=== PATIENT | female | born 1990 | race Caucasian/White ===

== ENCOUNTER 2016-12-07 14:00 | Emergency (ER) | payer OTHER | END 2016-12-07 16:54 | disposition home or self-care (01) | LOC: ER1 14:00 | DX: G89.29 Other chronic pain (principal); M54.5 Low back pain; I10 Essential (primary) hypertension; G43.909 Migraine, unspecified, not intractable, without status migrainosus; Z88.0 Allergy status to penicillin; Z79.899 Other long term (current) drug therapy | CPT/HCPCS: 99283 ==

== ENCOUNTER 2020-07-25 07:28 | Emergency (ER) | payer OTHER ==
[~2020-07-25 07:28] MED LIST: IBUPROFEN600 MG PO
[2020-07-25 08:37] LABS: HEMOGLOBIN 13.3 gm/dl (12.3-15.3); RED BLOOD COUNT 4.24 M/UL (4.00-5.10); WHITE BLOOD COUNT 4.8 K/UL (4.5-11.0)
[2020-07-25 08:58] LABS: BUN/CREATININE RATIO 16 (0-10)
[2020-07-25] MEDS ORDERED: NAPROSYN500 MG PO (11:26)
[2020-07-25] MEDS ORDERED: MACROBID 100 M100 MG PO (11:26)
== END 2020-07-25 11:42 | disposition home or self-care (01) ==
LOC: ER1 07:28
PROVIDERS: Family Medicine
DX: N83.292 Other ovarian cyst, left side (principal); N39.0 Urinary tract infection, site not specified; Z88.0 Allergy status to penicillin; Z87.42 Personal history of other diseases of the female genital tract
CPT/HCPCS: 80053; 81001; 82150; 83690; 84703; 85025; 87086; 96374; 99284; J1885; Q9967

== ENCOUNTER → 2021-11-08 | Outpatient (CLI) | payer OTHER ==
[~2021-11-08] MED LIST changes: +MACROBID 100 M100 MG PO; +NAPROSYN500 MG PO
== END ==
LOC: HEART CORB 12:39
DX: I10 Essential (primary) hypertension (principal); R07.2 Precordial pain